=== PATIENT | female | born 1945 | race Caucasian/White ===

== ENCOUNTER 2017-12-22 19:36 | Emergency (ER) | payer OTHER, BC ==
--- NOTE | 2017-12-22 19:50 | PDOC ---
History of Present Illness - General History Source: Patient Exam Limitations: No Limitations - History of Present Illness Initial Comments: 12/22/17 20:21 The patient is a 72 year old female, with a significant past medical history of hypertension and spinal stenosis, who presents to the emergency department from home via EMS with, multiple episodes of non bloody non bilious vomiting beginning approx. 3 hours ago and multiple episodes of loose watery diarrhea beginning approx 2 hours ago. The patient reports she was feeling fine during the day and states she had a normal lunch consisting of chicken wings. The patient reports the vomiting began at approx. 5pm and the diarrhea began at a quarter to 6 pm. The patient reports associated symptoms of abdominal cramps, weakness and lightheadedness secondary to the vomiting and diarrhea. The patient states she does not feel nauseous at present. The patient reports her granddaughter was sick approx. 2 weeks ago at home. The patient denies recent travel. She denies recent fevers, chills, or headache. She denies recent dysuria, frequency, urgency or hematuria. She denies recent chest pain or shortness of breath. Allergies: Penicillin, Codeine Past surgical history: None reported. Social history: Nonsmoker. Denies EtOH use and recreational drug use. Primary Care Physician: Dr. Digna Blum <Sam Tee - Last Filed: 12/22/17 20:35> <Laurita Cook - Last Filed: 12/23/17 03:52> - General Chief Complaint: Nausea/Vomiting Stated Complaint: 5 PM STARTED WITH NAUSEA LOOSE STOOL AND CRAMPS Time Seen by Provider: 12/22/17 19:50 Past History <Sam Tee - Last Filed: 12/22/17 20:35> - Past Medical History Anemia: Yes (HAD TRANSFUSION) Asthma: No Cancer: No Cardiac Disorders: No (PT HAD CHEST DISCOMFORT 01/07/15,CAME TO ER CARDIAC WORKUP ALL NORMAL.) CVA: No COPD: No CHF: No Dementia: No Diabetes: No GI Disorders: Yes (GERD) Disorders: No HTN: Yes Hypercholesterolemia: Yes Liver Disease: No Psychiatric Problems: Yes (ANXIETY DEPRESSION) Seizures: No Thyroid Disease: No Other medical history: BACK PROBLEMS - Surgical History Abdominal Surgery: No Appendectomy: No Cardiac Surgery: No Cholecystectomy: No Lung Surgery: No Neurologic Surgery: No Orthopedic Surgery: Yes (LEFT TKR 2012,RIGHT CARPAL TUNNEL) - Suicide/Smoking/Psychosocial Hx Smoking Status: No Smoking History: Never smoked Have you smoked in the past 12 months: No Number of Cigarettes Smoked Daily: 0 Information on smoking cessation initiated: No Hx Alcohol Use: No Drug/Substance Use Hx: No Substance Use Type: None Hx Substance Use Treatment: No <Laurita Cook - Last Filed: 12/23/17 03:52> - Past Medical History Allergies/Adverse Reactions: Allergies Allergy/AdvReac Type Severity Reaction Status Date / Time Penicillins Allergy Verified 12/22/17 19:38 codeine [Codeine] AdvReac Verified 12/22/17 19:38 Home Medications: Ambulatory Orders Atorvastatin Ca [Lipitor (Restricted To Cardiology)] 40 mg PO HS 05/19/12 Fluoxetine HCl [Prozac] 60 mg PO DAILY 05/19/12 Aspirin [ASA -] 81 mg PO DAILY 01/07/15 Fenofibrate Nanocrystallized [Tricor] 145 mg PO HS 01/07/15 Nebivolol HCl [Bystolic] 5 mg PO DAILY 01/07/15 Fexofenadine HCl [Luba] 180 mg PO ASDIR PRN 01/22/15 Pantoprazole Sodium [Protonix] 40 mg PO DAILY 01/22/15 Lisinopril/Hydrochlorothiazide [Zestoretic 20-25 mg Tablet] 1 tab PO DAILY 12/22 Ondansetron [Zofran Odt -] 4 mg SL TID PRN #10 od.tablet 12/22/17 Review of Systems - Review of Systems Comments:: 12/22/17 20:23 CONSTITUTIONAL: Present: +Weakness. Absent: fever, no chills, EYES: Absent: visual changes ENT: Absent: ear pain, no sore throat CARDIOVASCULAR: Absent: chest pain, no palpitations RESPIRATORY: Absent: cough, no SOB GI: Present: +Nausea. +Vomit. +Diarrhea. +Abdominal cramps. Absent: no constipation GENITOURINARY: Absent: dysuria, no frequency, no hematuria MUSKULOSKELETAL: Present: +Back pain (chronic, secondary to spinal stenosis) Absent: no arthralgia, no myalgia SKIN: Absent: rash NEURO: Absent: headache <Sam Tee - Last Filed: 12/22/17 20:35> *Physical Exam - Vital Signs Last Vital Signs Temp Pulse Resp BP Pulse Ox 98 F 68 20 111/72 97 12/22/17 19:37 12/22/17 19:37 12/22/17 19:37 12/22/17 19:37 12/22/17 19:37 - Physical Exam Comments: 12/22/17 20:35 GENERAL: The patient is awake, alert, and fully oriented, in no acute distress. HEAD: Normal with no signs of trauma. EYES: Pupils equal, round and reactive to light, extraocular movements intact, sclera anicteric, conjunctiva clear with no pallor. ENT: +Dry mucous membranes. Ears normal, nares patent, oropharynx clear without exudates. NECK: Normal range of motion, supple without lymphadenopathy, JVD, or masses. LUNGS: Breath sounds equal, clear to auscultation bilaterally. No wheeze/ crackles. HEART: Regular rate and rhythm, normal S1 and S2 without murmur or rub. ABDOMEN: +Hyperactive bowel sounds. Soft/nontender/nondistended. No guarding or rebound. No palpable masses. No hepatosplenomegaly. EXTREMITIES: Normal range of motion, no edema. No clubbing or cyanosis. No cords, erythema, or tenderness. NEUROLOGICAL: Cranial nerves II through XII grossly intact. Normal speech, normal gait. PSYCH: Normal mood, normal affect. SKIN: Warm, Dry, normal turgor, no rashes or lesions noted. <Sam Tee - Last Filed: 12/22/17 20:35> - Vital Signs Last Vital Signs Temp Pulse Resp BP Pulse Ox 98 F 68 20 111/72 97 12/22/17 19:37 12/22/17 19:37 12/22/17 19:37 12/22/17 19:37 12/22/17 19:37 <Laurita Cook - Last Filed: 12/23/17 03:52> ED Treatment Course - LABORATORY CBC & Chemistry Diagram: 12/22/17 20:25 12/22/17 20:25 <Sam Tee - Last Filed: 12/22/17 20:35> - LABORATORY CBC & Chemistry Diagram: 12/22/17 20:25 12/22/17 20:25 <Laurita Cook - Last Filed: 12/23/17 03:52> Medical Decision Making - Medical Decision Making Documentation has been prepared under my direction and personally reviewed by me in its entirety. I attest that this documented accurately reflects all work, treatment, procedures and medical decision making performed by me. As noted above, this 72-year-old woman with a history of hypertension presents with a several hour history of nausea/vomiting/diarrhea. Patient has minimal abdominal pain and no history of fever/chills. Exam as noted with dry mucous membranes present. CBC/chemistry profile/lipase cardiac enzymes shows evidence of prerenal azotemia with BUN of 50 and creatinine of 2.0. Electrolyte levels are normal; Patient received 1 L normal saline IV; she had no further nausea and started ice chips by mouth. Patient had no further nausea/vomiting/diarrhea and was discharged with instructions to maintain a clear liquid diet. Patient should cautiously advance to solid foods as tolerated. Prescription for Zofran ODT 4 mg up to 3 times a day (#10) was sent to her pharmacy. She should follow-up with her general doctor within the next 5 days and return here if she has persistent vomiting or experiences severe pain/fever <Laurita Cook - Last Filed: 12/23/17 03:52> *DC/Admit/Observation/Transfer - Attestations Scribe Attestion: 12/22/17 20:25 Documentation prepared by Sam Tee, acting as medical certification specialist for Laurita Cook MD. <Sam Tee - Last Filed: 12/22/17 20:35> <Laurita Cook - Last Filed: 12/23/17 03:52> Diagnosis at time of Disposition: Gastroenteritis, Dehydration - Discharge Dispostion Disposition: HOME Condition at time of disposition: Stable - Prescriptions Prescriptions: Ondansetron [Zofran Odt -] 4 mg SL TID PRN #10 od.tablet PRN Reason: Nausea - Referrals Referrals: Digna Blum MD [Staff Physician] - Call tomorrow - Patient Instructions Printed Discharge Instructions: DI for Viral Gastroenteritis -- Adult Additional Instructions: Clear liquid diet Advance diet to solid foods cautiously Zofran ODT 4 mg up to 3 times a day as needed for persistent nausea Imodium as needed for loose stools (2 mg after each loose stool) Call Dr. Blum's office in the morning to arrange follow-up within the next 5 days Return to ER if you have persistent vomiting or experience severe abdominal pain /fever
[2017-12-22 19:51] VITALS: BP 111/72; PULSE 68; TEMP 98; BMI 31.8
[2017-12-22] MEDS ORDERED: SODIUM CHLORIDE 1,000 ML IV STA (20:13)
[2017-12-22 21:00] LABS: BASO % 0.2 % (0-2.0); EOS % 1.7 % (0-4.5); HEMATOCRIT 37.1 % (32.4-45.2); HEMOGLOBIN 12.6 GM/dl (10.7-15.3); LYMPH % 5.9 % (8-40); MCH 30.6 pg (25.7-33.7); MCHC 34.1 g/dl (32.0-36.0); MEAN CELL VOLUME 89.8 fl (80-96); MEAN PLT VOLUME 10.1 fl (7.5-11.1); MONO % 5.4 % (3.8-10.2); NEUT % 86.8 % (42.8-82.8); PLATELET COUNT 227 K/MM3 (134-434); RBC 4.13 M/mm3 (3.60-5.2); WHITE BLOOD COUNT 14.4 K/mm3 (4.0-10.8)
[2017-12-22 21:07] LABS: ALBUMIN 4.6 g/dl (3.5-5.0); ALK PHOS 47 U/L (32-92); ANION GAP 8 (8-16); BILIRUBIN,TOTAL 0.7 mg/dl (0.2-1.0); BLOOD UREA NITROGEN 51 mg/dl (7-18); CALCIUM 10.2 mg/dl (8.4-10.2); CHLORIDE 104 mmol/L (98-107); CO2 22 mmol/L (22-28); GLUCOSE,RANDOM 120 mg/dl (74-106); POTASSIUM 4.1 mmol/L (3.5-5.1); SGOT/AST 26 U/L (10-42); SGPT/ALT 20 U/L (10-40); SODIUM 134 mmol/L (136-145); TOT PROT 7.8 g/dl (6.4-8.3)
[2017-12-22 22:14] LABS: LIPASE 191 U/L (73-393)
== END 2017-12-22 23:06 | disposition home or self-care (01) ==
LOC: FER 19:36
PROC: 3E0337Z Introduction of Electrolytic and Water Balance Substance into Peripheral Vein, Percutaneous Approach (ICD-10-PCS; principal; 2017-12-22)
DX: K52.9 Noninfective gastroenteritis and colitis, unspecified (principal); E86.0 Dehydration; F41.8 Other specified anxiety disorders; I10 Essential (primary) hypertension; E78.00 Pure hypercholesterolemia, unspecified; K21.9 Gastro-esophageal reflux disease without esophagitis
CPT/HCPCS: 36415; 80053; 82550; 83690; 84484; 85025; 96360; 99283-25

== ENCOUNTER 2018-10-17 08:25 | Day surgery (SDC) | payer OTHER, BC ==
[2018-10-11 16:33] VITALS: BMI 31.9
[2018-10-17] MEDS ORDERED: PROPOFOL 20 ML ONE ×2 (09:09)
[2018-10-17 10:11] VITALS: TEMP 97.9
[2018-10-17 10:36] VITALS: BP 122/61; PULSE 64
--- NOTE | 2018-10-18 13:35 | PATH ---
Surgical Pathology Report Patient Name: RAMILA LOWRY [facility]. Rec. #: [id number] /Age/Gender: 1945 (Age: 73) / F Account: [id number] Location: [facility] Taken: 10/17/2018 Received: 10/17/2018 Reported: 10/18/2018 Physicians: Long Mendoza M.D. Specimen(s) Received A: RIGHT COLON POLYP B: RECTAL POLYP Clinical History History of polyps Postoperative diagnosis: Polyps, diverticulosis Final Diagnosis A. COLON, RIGHT, POLYP, BIOPSY: TUBULAR ADENOMA. B. RECTUM, POLYP, BIOPSY: HYPERPLASTIC POLYP. Electronically Signed Eneida Valdovinos M.D. Gross Description A. Received in formalin, labeled "right colon polyp" is a kay, irregular portion of soft tissue measuring 0.4 cm. in greatest dimension. The specimen is submitted in toto in one cassette. B. Received in formalin, labeled "rectal polyp" is a kay, irregular portion of soft tissue measuring 0.4 cm. in greatest dimension. The specimen is submitted in toto in one cassette. /10/17/2018 saudi/10/17/2018
== END 2018-10-17 10:39 | disposition home or self-care (01) ==
LOC: FASU-ENDO 08:25
PROVIDERS: ATTEND Internal Medicine Gastroenterology
PROC: 0DBP8ZX Excision of Rectum, Via Natural or Artificial Opening Endoscopic, Diagnostic (ICD-10-PCS; 2018-10-17)
PROC: 0DBP8ZX Excision of Rectum, Via Natural or Artificial Opening Endoscopic, Diagnostic (ICD-10-PCS; 2018-10-17)
PROC: 0DBK8ZX Excision of Ascending Colon, Via Natural or Artificial Opening Endoscopic, Diagnostic (ICD-10-PCS; principal; 2018-10-17 09:30)
DX: Z86.010 Personal history of colon polyps (principal); K57.30 Diverticulosis of large intestine without perforation or abscess without bleeding; D12.2 Benign neoplasm of ascending colon; K62.1 Rectal polyp
CPT/HCPCS: 88305-TC

== ENCOUNTER 2019-02-28 21:38 | Emergency (ER) | payer OTHER, BC ==
[2019-02-28 21:47] VITALS: TEMP 97.7; BMI 31.2
--- NOTE | 2019-02-28 22:43 | PDOC ---
History of Present Illness - General Chief Complaint: Blood Pressure Problem Stated Complaint: HEADACHE Time Seen by Provider: 02/28/19 21:41 - History of Present Illness Initial Comments: 02/28/19 23:18 The patient is a 73 year old female with a significant past medical history of hypertension, high cholesterol, GERD, osteoporosis (on medications, started in January) anxiety, and depression who presents to the emergency department with 4 hours of a headache. The patient describes her headache as pressure around her head. She states that she often gets similar headaches. Denies thunderclap. Denies worst headache of life. Denies neck stiffness/pain. Denies F /C. The patient notes she took 2 tylenol with no relief. The patient also notes her blood pressure was elevated, with her highest at 174/90 at around 8pm. Pt went to urgent care and was referred to ED to r/o ICH. Pt denies dizziness, nausea, vomiting, weakness/numbness in any extremity. The patient denies chest pain or shortness of breath. The patient denies fever, chills, vomit, diarrhea or constipation. The patient denies dysuria, frequency, urgency or hematuria. Allergies: Penicillins, Codeine Past surgical history: LEFT TKR 2013, RIGHT CARPAL TUNNEL Social history: No tobacco use. No alcohol use. PCP: Digna Boucher Past History - Past Medical History Allergies/Adverse Reactions: Allergies Allergy/AdvReac Type Severity Reaction Status Date / Time AINSLEY Inhibitors Allergy Verified 02/28/19 21:39 Penicillins Allergy Verified 02/28/19 21:39 codeine [Codeine] AdvReac Verified 02/28/19 21:39 Home Medications: Ambulatory Orders Atorvastatin Ca [Lipitor (Restricted To Cardiology)] 40 mg PO HS 05/19/12 Fluoxetine HCl [Prozac] 40 mg PO DAILY 05/19/12 Aspirin [ASA -] 81 mg PO DAILY 01/07/15 Fenofibrate Nanocrystallized [Tricor] 145 mg PO HS 01/07/15 Nebivolol HCl [Bystolic] 10 mg PO DAILY 01/07/15 Losartan/Hydrochlorothiazide [Losartan-Hctz 100-12.5 mg Tab] 1 each PO DAILY Denosumab [Prolia] 60 mg SQ MONTHLY 02/28/19 Anemia: No (possible Anemia ??) Asthma: No Cancer: No Cardiac Disorders: No CVA: No COPD: No CHF: No Dementia: No Diabetes: No GI Disorders: Yes (GERD) Disorders: No HTN: Yes Hypercholesterolemia: Yes Liver Disease: No Psychiatric Problems: Yes (ANXIETY/DEPRESSION) Seizures: No Thyroid Disease: No - Surgical History Abdominal Surgery: No Appendectomy: No Cardiac Surgery: No Cholecystectomy: No Lung Surgery: No Neurologic Surgery: Yes (Spinal Fusion 04/2018) Orthopedic Surgery: Yes (Bilateral Knee Replacement,Right Carplal Tunnel Release ) - Suicide/Smoking/Psychosocial Hx Smoking Status: No Smoking History: Never smoked Have you smoked in the past 12 months: No Number of Cigarettes Smoked Daily: 0 Information on smoking cessation initiated: No Hx Alcohol Use: No Drug/Substance Use Hx: No Substance Use Type: None Hx Substance Use Treatment: No Review of Systems - Review of Systems Comments:: 02/28/19 23:21 "GENERAL/CONSTITUTIONAL: No fever or chills. No weakness. HEAD, EYES, EARS, NOSE AND THROAT: No change in vision. No ear pain or discharge. No sore throat. CARDIOVASCULAR: No chest pain, no shortness of breath, no loss of consciousness RESPIRATORY: No cough, wheezing, or hemoptysis. GASTROINTESTINAL: No nausea, vomiting, diarrhea or constipation. GENITOURINARY: No dysuria, frequency, or change in urination. MUSCULOSKELETAL: No joint or muscle swelling or pain. No neck or back pain. SKIN: No rash NEUROLOGIC: + headache, No vertigo, no change in strength/sensation. ENDOCRINE: No increased thirst. No abnormal weight change. HEMATOLOGIC/LYMPHATIC: No anemia, easy bleeding, or history of blood clots. ALLERGIC/IMMUNOLOGIC: No hives or skin allergy. *Physical Exam - Vital Signs Last Vital Signs Temp Pulse Resp BP Pulse Ox 97.7 F 58 L 16 168/77 100 02/28/19 21:44 02/28/19 21:44 02/28/19 21:44 02/28/19 21:44 02/28/19 21:44 - Physical Exam Comments: 02/28/19 23:21 GENERAL: Awake, alert, and fully oriented, in no acute distress. HEAD: No signs of trauma EYES: PERRLA, EOMI, sclera anicteric, conjunctiva clear ENT: Auricles normal inspection, hearing grossly normal, nares patent, oropharynx clear without exudates. Moist mucosa NECK: Nontender, no stepoffs, Normal ROM, supple, no lymphadenopathy, JVD, or masses LUNGS: Breath sounds equal, clear to auscultation bilaterally. No wheezes, and no crackles HEART: Regular rate and rhythm, normal S1 and S2, no murmurs, rubs or gallops ABDOMEN: Soft, nontender, normoactive bowel sounds. No guarding, no rebound. No masses EXTREMITIES: Normal range of motion, no edema. No clubbing or cyanosis. No cords, erythema, or tenderness NEUROLOGICAL: Cranial nerves II through XII intact. 5/5 strength and sensation in all extremities, Normal speech, normal gait, normal cerebellar function SKIN: Warm, Dry, normal turgor, no rashes or lesions noted. ED Treatment Course - RADIOLOGY Radiology Studies Ordered: Category Date Time Status HEAD CT WITHOUT CONTRAST [CT] Stat CT Scan 02/28/19 22:17 Ordered Medical Decision Making - Medical Decision Making 02/28/19 22:26 73 F with elevated BP and headache. Pt with no neuro deficits but given PALMA in the context of slightly elevated BP, will r/o ICH. Pt with no CP/SOB to suggest ACS. - CT head 02/28/19 23:22 CT head wnl Pt is well appearing, with normal vitals. Clinically stable for DC at this time. I discussed the physical exam findings, ancillary test results and final diagnoses with the patient. I answered all of the patient's questions. The patient was satisfied with the care received and felt comfortable with the discharge plan and treatment plan. The patient agrees to follow up with the primary care physician within 24-72 hours. *DC/Admit/Observation/Transfer Diagnosis at time of Disposition: Headache - Discharge Dispostion Disposition: HOME Condition at time of disposition: Stable - Referrals Referrals: Digna Blum MD [Primary Care Provider] - - Patient Instructions Printed Discharge Instructions: DI for High Blood Pressure, DI for Headache Additional Instructions: Please follow up with your primary doctor within 48 hours regarding your blood pressure. If it is persistently elevated, you may need to have your medications adjusted. If you experience worsening or persistent headache, vomiting, confusion, chest pain, shortness of breath, or any other concerning symptoms, return to the ER immediately. - Post Discharge Activity - Attestations Physician Attestion: 04/09/19 23:23 I, Dr. Walt Horn MD, attest that this document has been prepared under my direction and personally reviewed by me in its entirety. I further attest, that it accurately reflects all work, treatment, procedures and medical decision -making performed by me.
[2019-02-28 23:19] VITALS: BP 137/66; PULSE 52
== END 2019-02-28 23:40 | disposition home or self-care (01) ==
LOC: FER 21:38
DX: R51 Headache (principal); I10 Essential (primary) hypertension; E78.5 Hyperlipidemia, unspecified; K21.9 Gastro-esophageal reflux disease without esophagitis; M81.0 Age-related osteoporosis without current pathological fracture; F41.8 Other specified anxiety disorders
CPT/HCPCS: 70450-TC; 99281-25

== ENCOUNTER 2020-10-04 17:06 | Emergency (ER) | payer OTHER, BC | END 2020-10-04 17:44 | disposition home or self-care (01) | LOC: JVIRT 17:06 | DX: Z11.59 Encounter for screening for other viral diseases (principal) | CPT/HCPCS: C9803; Q3014-GT; U0003 ==

== ENCOUNTER 2025-02-08 18:45 | Emergency (ER) | payer OTHER, BC ==
[2025-02-08] MEDS ORDERED: ONDANSETRON *ODT* 4 MG TABLET ONE (18:55)
[2025-02-08] MEDS: ONDANSETRON *ODT* 4 MG TABLET SL ONE (18:56)
[2025-02-08 18:59] VITALS: RESP 18; BMI 34.7
[2025-02-08] MEDS ORDERED: KETOROLAC TROMETHAMINE 30 MG/1 ML VIAL ONE (19:20)
[2025-02-08] MEDS ORDERED: FAMOTIDINE 20 MG/50 ML IVPB 20 MG/50 ML MG IVPB ONE (19:21)
[2025-02-08] MEDS ORDERED: ACETAMINOPHEN INJECTION 100 ML ONE (19:21)
[2025-02-08] MEDS: SODIUM CHLORIDE 1,000 ML IV STA (19:41)
[2025-02-08] MEDS: ACETAMINOPHEN 1000 MG/100 ML BAG IVPB ONE (19:42)
[2025-02-08] MEDS: FAMOTIDINE 20 MG/50 ML IVPB 20 MG/50 ML MG IVPB ONE (19:42)
[2025-02-08] MEDS: KETOROLAC TROMETHAMINE 30 MG/1 ML VIAL IVPUSH ONE (19:42)
[2025-02-08 19:58] LABS: ABSOLUTE IMMATURE GRANULOCYTES 0.01 x10^3/uL (0.0-0.031); BASOPHILS # 0.01 x10^3/uL (0.01-0.08); EOSINOPHIL % 3.5 % (0.7-5.8); EOSINOPHILS # 0.27 x10^3/uL (0.04-0.36); HEMATOCRIT 34.7 % (34.1-44.9); HEMOGLOBIN 11.4 g/dL (11.2-15.7); MCHC 32.9 g/dl (32.2-35.5); MEAN CELL VOLUME 93.3 fl (79.4-94.8); MEAN PLT VOLUME 10.7 fl (9.4-12.3); MONOCYTE # 0.71 x10^3/uL (0.24-0.86); MONOCYTE % 9.3 % (4.7-12.5); PLATELET COUNT # 176 x10^3/uL (182-369)
[2025-02-08 20:07] LABS: ALBUMIN 4.4 g/dl (3.4-5.0); BILIRUBIN,TOTAL 0.5 mg/dl (0.2-1); CALCIUM 9.8 mg/dl (8.5-10.1); CREATININE 2.2 mg/dl (0.6-1.3); POTASSIUM 4.4 mmol/L (3.5-5.1)
[2025-02-08 20:26] VITALS: BP 130/52; PULSE 66; TEMP 98.4
[2025-02-08] MEDS ORDERED: DOXYCYCLINE HYCLATE 100 MG CAPSULE PO ONE (20:50)
[2025-02-08] MEDS: DOXYCYCLINE HYCLATE 100 MG CAPSULE PO ONE (20:51)
[2025-02-08 22:53] LABS: HIV INTERPRETATION NEGATIVE (NEGATIVE)
== END 2025-02-08 20:56 | disposition home or self-care (01) ==
LOC: FER 18:45
PROC: 3E033GC Introduction of Other Therapeutic Substance into Peripheral Vein, Percutaneous Approach (ICD-10-PCS; principal; 2025-02-08)
PROC: 3E033NZ Introduction of Analgesics, Hypnotics, Sedatives into Peripheral Vein, Percutaneous Approach (ICD-10-PCS; 2025-02-08)
PROC: 3E0333Z Introduction of Anti-inflammatory into Peripheral Vein, Percutaneous Approach (ICD-10-PCS; 2025-02-08)
DX: R11.2 Nausea with vomiting, unspecified (principal); R10.13 Epigastric pain; R06.02 Shortness of breath; T36.8X5A Adverse effect of other systemic antibiotics, initial encounter
CPT/HCPCS: 36415; 80053; 84484; 85025; 86803; 87389; 93005; 99284-25; J0131; Q0162